=== PATIENT | male | born 1960 | race Two or more races ===

== ENCOUNTER 2020-11-05 13:23 | Outpatient (CLI) | payer OTHER | END 2020-11-05 13:36 | disposition home or self-care (01) | LOC: RAD 13:23 | PROVIDERS: ATTEND Orthopaedic Surgery | DX: M17.0 Bilateral primary osteoarthritis of knee (principal); M25.762 Osteophyte, left knee; M25.561 Pain in right knee; M25.562 Pain in left knee; M25.511 Pain in right shoulder ==

== ENCOUNTER → 2020-11-07 | Outpatient (CLI) | payer OTHER | END | disposition home or self-care (01) | LOC: SONOGRAMA 10:14 | PROVIDERS: ATTEND Orthopaedic Surgery | DX: M25.511 Pain in right shoulder (principal) ==